=== PATIENT | male | born 1970 | race African-American/Black ===

== ENCOUNTER → 2018-04-24 | Outpatient (CLI) | payer OTHER ==
--- NOTE | 2018-04-24 22:06 | RAD ---
Examination: Lower Extremity Venous Doppler Ultrasound History: Left calf pain Comparison: None Procedure: Neal scale, color flow 2D and spectal waveform analysis images are obtained with and without compression in the area of the common femoral vein, superficial femoral vein - femoral vein junction, main femoral vein (superficial femoral vein) and popliteal vein. Veins of the proximal calf are also imaged. Findings: There is occlusive deep venous thrombosis identified in the left leg from proximal superficial femoral vein and extending to the popliteal vein and extending into the posterior tibialis vein and peroneal vein on the left. No evidence of deep venous thrombus identified in the right lower extremity. IMPRESSION: Occlusive deep venous thrombosis identified in the left leg extending from the proximal superficial femoral vein to the peroneal vein on the left. Ordering physician aware of the findings. Electronically signed by: Tato Ardon MD (04/24/2018 10:02 PM) [id number]
== END | disposition home or self-care (01) ==
LOC: US 20:54
DX: I82.492 Acute embolism and thrombosis of other specified deep vein of left lower extremity (principal); Z86.718 Personal history of other venous thrombosis and embolism
CPT/HCPCS: 93971